=== PATIENT | male | born 1950 | race Caucasian/White ===

== ENCOUNTER 2021-02-18 09:47 | Inpatient (IN) | payer MEDICAID ==
[~2021-02-18] VITALS: Ht 165.1 cm; Wt 85.7 kg
[2021-02-18 10:37] LABS: BASOPHILS % 0.6 % (0.0-2.0); EOSINOPHILS % 1.7 % (0.0-5.0); HEMATOCRIT. 34.6 % (42.0-52.0); HEMOGLOBIN. 11.6 g/dL (14.0-18.0); LYMPHOCYTES % 21.9 % (20.0-50.0); MEAN CORPUSCULAR HEMOGLOBIN 27.3 pg (28.0-32.0); MEAN CORPUSCULAR VOLUME 81.2 fL (80.0-94.0); MEAN PLATELET VOLUME 7.9 fl (7.4-10.4); MONOCYTES % 7.8 % (2.0-8.0); PLATELET 222 x1000/uL (130-400); RED BLOOD CELL COUNT 4.25 mill/uL (4.7-6.1); RED CELL DISTRIBUTION WIDTH 14.6 % (11.6-14.6)
[2021-02-18 10:44] LABS: CHLORIDE 109 mEq/L (98-107)
[2021-02-18 10:48] LABS: ETHANOL BLOOD < 10 mg/dL
[2021-02-18] MEDS ORDERED: SODIUM CHLORIDE 0.9% 500 ML IV ONE (11:00)
[2021-02-18 11:47] LABS: CLARITY URINE CLEAR (CLEAR); COLOR URINE YELLOW (YELLOW); KETONES URINE NEGATIVE (NEGATIVE); LEUKOCYTE ESTERASE URINE NEGATIVE (NEGATIVE); NITRITE URINE NEGATIVE (NEGATIVE); OCCULT BLOOD URINE NEGATIVE (NEGATIVE); PROTEIN URINE TRACE (NEGATIVE); SPECIFIC GRAVITY URINE 1.007 (1.005-1.030); UROBILINOGEN URINE 0.2 E.U./dL (0.2-1.0)
[2021-02-18 12:09] LABS: *AMPHETAMINES SCREEN URINE NEGATIVE (NEGATIVE); *BARBITURATES SCREEN URINE NEGATIVE (NEGATIVE); *BENZODIAZEPINES SCREEN URINE NEGATIVE (NEGATIVE); *COCAINE SCREEN URINE NEGATIVE (NEGATIVE); CANNABINOID URINE SCREEN NEGATIVE (NEGATIVE); METHADONE URINE SCREEN NEGATIVE (NEGATIVE); OPIATES URINE SCREEN NEGATIVE (NEGATIVE); PHENCYCLIDINE URINE SCREEN NEGATIVE (NEGATIVE)
[2021-02-18] MEDS ORDERED: ONDANSETRON HCL 4MG/2ML INJ IV PRN (13:00)
[2021-02-18] MEDS ORDERED: ACETAMINOPHEN 325MG TABLET PO PRN (13:00)
[2021-02-18] MEDS: AMLODIPINE 10MG TABLET PO SCH (13:21)
[2021-02-18] MEDS: HYDRALAZINE HCL 50MG TABLET PO SCH ×2 (15:47→22:00)
[2021-02-18 21:05] VITALS: BP 153/66
[2021-02-18 22:00] VITALS: BP 153/66
[2021-02-19] VITALS: BP 118/64
[2021-02-19 04:00] VITALS: BP 147/63
[2021-02-19] MEDS: HYDRALAZINE HCL 50MG TABLET PO SCH (05:52)
[2021-02-19 08:00] VITALS: BP 147/70
[2021-02-19] MEDS ORDERED: ASPIRIN 81MG EC TABLET PO SCH (08:00)
[2021-02-19] MEDS: AMLODIPINE 10MG TABLET PO SCH (08:12)
[2021-02-19] MEDS ORDERED: MAGNESIUM OXIDE 400MG TABLET PO SCH (09:15)
[2021-02-19 12:00] VITALS: BP 140/60
[2021-02-19 12:16] VITALS: BP 118/68
== END 2021-02-19 13:55 | disposition home or self-care (01) | DRG 48 ==
LOC: ER 09:47 → EDBEDREQ 12:56 → MICUSO 18:10 → 7EST 20:18
PROVIDERS: ADMIT Internal Medicine; ATTEND Internal Medicine
DX: G90.8 Other disorders of autonomic nervous system (principal); E44.1 Mild protein-calorie malnutrition; E87.8 Other disorders of electrolyte and fluid balance, not elsewhere classified; D64.9 Anemia, unspecified; E11.9 Type 2 diabetes mellitus without complications; E83.42 Hypomagnesemia; F32.9 Major depressive disorder, single episode, unspecified; N40.0 Benign prostatic hyperplasia without lower urinary tract symptoms; I10 Essential (primary) hypertension; F41.9 Anxiety disorder, unspecified; Z79.4 Long term (current) use of insulin; Z82.3 Family history of stroke; Z82.49 Family history of ischemic heart disease and other diseases of the circulatory system; Z68.31 Body mass index [BMI] 31.0-31.9, adult; Z79.899 Other long term (current) drug therapy; R00.1 Bradycardia, unspecified
CPT/HCPCS: 36415; 71045; 80053; 80305; 80320; 81003; 82962; 83036; 83735; 83880; 84443; 84484; 85025; 93005; 93880; 99285; J7040; G0480